=== PATIENT | female | born 1980 | race Caucasian/White ===

== ENCOUNTER 2019-11-20 15:50 | Outpatient (CLI) | payer OTHER | END 2019-11-20 15:51 | disposition home or self-care (01) | LOC: DTY/OP 15:50 | PROVIDERS: ATTEND Surgery | DX: E66.01 Morbid (severe) obesity due to excess calories (principal) | CPT/HCPCS: 97802 ==

== ENCOUNTER 2019-12-18 15:45 | Outpatient (CLI) | payer OTHER | END 2019-12-18 15:46 | disposition home or self-care (01) | LOC: DTY/OP 15:45 | PROVIDERS: ATTEND Surgery | DX: E66.01 Morbid (severe) obesity due to excess calories (principal) | CPT/HCPCS: 97802 ==

== ENCOUNTER 2019-12-24 06:33 | Outpatient (CLI) | payer OTHER ==
[2019-12-24 17:20] LABS: #Basophils 0.1 thou/uL (0.0-0.2); #Eosinphils 0.3 thou/uL (0.0-0.7); #Lymphocytes 2.1 thou/uL (1.20-3.40); #Monocytes 0.4 thou/uL (0.11-0.59); #Neutrophils 4.2 thou/uL (1.40-6.50); %Basophils 0.7 % (0.0-1.0); %Eosinophils 4.5 % (0.0-10.0); %Lymphocytes 29.5 % (21.0-51.0); %Monocytes 5.1 % (0.0-10.0); %Neutrophils 60.1 % (42.0-75.0); Hemoglobin 13.6 g/dL (12.0-16.0); Mean Corpuscular HGB CONC 34.5 g/dL (32.0-36.0); Mean Corpuscular Hemoglobin 32.7 pg (27.0-31.0); Mean Corpuscular Volume 94.8 fL (78.0-98.0); Mean Platelet Volume 8.1 fL (7.4-10.4); Platelet Count 188 thou/uL (130-400); RBC Distribution Width 11.4 % (11.5-14.5); Red Blood Cell (RBC) Count 4.17 mill/uL (4.20-5.40); White Blood Cell (WBC) Count 7.1 thou/uL (4.8-10.8)
[2019-12-24 17:43] LABS: Anion Gap 11 mmol/L (10-20); BUN (Urea Nitrogen) 15 mg/dL (7.0-18.7); Calc. Creatinine Clearance 0 mL/min (70-130); Calcium 9.4 mg/dL (7.8-10.44); Carbon Dioxide 24 mmol/L (22-29); Chloride 106 mmol/L (98-107); Estimated GFR-MDRD Greater than 90; Glucose 92 mg/dL (70-105); Potassium 3.8 mmol/L (3.5-5.1); Sodium 137 mmol/L (136-145)
== END 2019-12-24 06:34 | disposition home or self-care (01) ==
LOC: LABBT 06:33
PROVIDERS: ATTEND Surgery
DX: Z01.812 Encounter for preprocedural laboratory examination (principal); C50.911 Malignant neoplasm of unspecified site of right female breast
CPT/HCPCS: 80048; 85025

== ENCOUNTER 2019-12-27 07:02 | Day surgery (SDC) | payer OTHER ==
[2019-12-24 16:25] VITALS: BMI 55.7
--- NOTE | 2019-12-27 08:47 | MMO ---
RIGHT BREAST MAMMOGRAPHIC GUIDED NEEDLE AND WIRE LOCALIZATION: INDICATION: Right breast malignancy. COMPARISON: Outside mammographic evaluation dated 11/26/2019. TECHNIQUE: Informed consent was obtained. Preprocedure mammographic image was provided for manufacturing sr engineer purposes. In a CC compression and a cranial approach, a 12 cm [place] needle was guided through the level of the lesion. Needle tip position was confirmed on 90 degree positioning. The wire was deployed. The needle tip is seen 6.2 mm from the margin of the lesion. The needle and wire were then fixated to the patient's skin. The patient tolerated the procedure without difficulty. IMPRESSION: BI-RADS Category 6-known malignancy. Status post mammographically guided needle wire localization. Transcribed Date/Time: 12/27/2019 9:16 AM
--- NOTE | 2019-12-27 09:06 | NM ---
Right breast lymphoscintigraphy: 12/27/2019 COMPARISON: None HISTORY: Right breast cancer FINDINGS: Under sterile technique, 0.39 mCi technetium 99m labeled sulfur colloid injected subcutaneo usly in divided doses along the superior, medial, inferior, and lateral margins of the areola. Frontal and lateral imaging demonstrates radiotracer activity in the region of the 4 injection sites as well as in the region of axillary lymph nodes. IMPRESSION: Lymphoscintigraphy of the right breast as above.
[2019-12-27] MEDS ORDERED: Fentanyl 100 MCG/2 ML VIAL ONE ×4 (09:51→13:13)
[2019-12-27] MEDS ORDERED: Lidocaine 2% PF 5 ML VIAL ONE (10:02)
[2019-12-27] MEDS ORDERED: Bupivacaine 0.25% HCL 30 ML VIAL ONE (10:02)
[2019-12-27] MEDS ORDERED: EPINEPHrine 1 MG/ML AMP ONE (10:02)
[2019-12-27] MEDS ORDERED: Scopolamine 1.5 mg/72 hour Patch ONE (10:05)
[2019-12-27] MEDS ORDERED: Methylene Blue 50 MG/10 ML AMPUL ONE (10:07)
[2019-12-27] MEDS ORDERED: Midazolam HCl 2 mg/2 ml Vial ONE (10:22)
[2019-12-27] MEDS ORDERED: Rocuronium Bromide 10 MG/ML (10ML VIAL) ONE (10:42)
[2019-12-27] MEDS ORDERED: PROPOFOL 200 MG/20 ML VIAL ONE (10:42)
[2019-12-27] MEDS ORDERED: EPHEDRINE 25 MG/5 ML SYRINGE ONE (10:42)
[2019-12-27] MEDS ORDERED: Lidocaine 1% PF 5 ML VIAL ONE (10:42)
[2019-12-27] MEDS ORDERED: Dexamethasone 20 MG/5 ML VIAL ONE (10:42)
[2019-12-27] MEDS ORDERED: Ondansetron PF 4 MG/2 ML Vial ONE (10:42)
[2019-12-27] MEDS ORDERED: Glycopyrrolate 0.2 MG/ML 5 ML SYRINGE ONE (10:42)
[2019-12-27] MEDS ORDERED: SUGAMMADEX SODIUM 500 MG/5 ML VIAL ONE (12:09)
--- NOTE | 2019-12-27 12:14 | MMO ---
RIGHT BREAST SPECIMEN MAMMOGRAM: Date: 12/27/2019 INDICATION: Right breast cancer. FINDINGS: Submitted specimen demonstrates a spiculated mass with associated biopsy clip. IMPRESSION: BI-RADS Category 6 - Known malignancy. The specimen does contain the spiculated mass with biopsy clip . Dr. Feldman was contacted in the OR at 1206 hours on 12/27/2019. CODE CR. POS: OFF
[2019-12-27] MEDS ORDERED: HYDROcodone/Acetaminophen 5/325 mg Tablet ONE (13:58)
[2019-12-27] MEDS ORDERED: Sodium Chloride 0.9% 0 ML ONE (15:44)
--- NOTE | 2019-12-28 09:02 | OP ---
DATE OF PROCEDURE: 12/27/2019 PREOPERATIVE DIAGNOSIS: Right breast cancer, clinical stage T2 N0 MX. POSTOPERATIVE DIAGNOSIS: Right breast cancer, clinical stage T2 N0 MX. PROCEDURES PERFORMED: 1. Right partial mastectomy after needle localization. 2. Right deep axillary node biopsy using sentinel node protocol. ANESTHESIA: General. ESTIMATED BLOOD LOSS: Minimal. COMPLICATIONS: None. SPECIMENS: 1. Right breast lumpectomy specimen, marked with 2 short superior 1 long lateral, and sent to Path for final diagnosis. 2. Additional margins superior, inferior, medial, lateral, anterior and posterior were all sent with stitch on new margin as final margins. 3. [place] lymph nodes. DESCRIPTION OF PROCEDURE: The patient had undergone preoperative lymphoscintigraphy which revealed uptake in the right axilla. She also had placement of needle localization wire into the area of previous biopsy in the right breast. She was taken to the operating room and laid supine on the operating table. After general anesthetic was obtained, bilateral breasts, neck, chest, arms, and sides were all prepped and draped in a sterile fashion. Incision was made along just inferior to the hairline of the right axilla. Dissection was performed through clavipectoral fascia. 5 mL of methylene blue dye had been infiltrated under the right nipple prior to the procedure and massaged for 10 minutes. A blue node was found and had increased uptake. This area was removed with a few other lymph nodes with it. There were a few lymph nodes around it with elevated, but slightly less uptake. These were removed as well. The background count then dropped to near 0. These were sent to Pathology as sentinel lymph nodes. This wound was irrigated and closed using 3-0 Vicryl, 4-0 Monocryl, and Dermabond. Next, an incision was made along the areolar edge superior and laterally. Flaps were raised superiorly, medially, inferolaterally, and posteriorly around the needle localization wire. The specimen was marked with 2 short superior 1 long lateral, sent to Path for specimen x-ray, which revealed the clip and mass to be in the specimen. This was marked and sent to Path for final diagnosis. Additional margins were taken superior, inferior, medially, laterally with sutures placed on new margin. The wound was irrigated. Local anesthetic was applied. The wound was closed using 3-0 Vicryl, 4-0 Monocryl, and Dermabond. The patient was sent to Recovery in stable condition. All instrument counts, needle counts, and lap counts were correct. Job ID: [id number]
== END 2019-12-27 16:35 | disposition home or self-care (01) ==
LOC: SDC 07:02
PROVIDERS: ATTEND Surgery
PROC: 07B53ZX Excision of Right Axillary Lymphatic, Percutaneous Approach, Diagnostic (ICD-10-PCS; principal; 2019-12-27)
PROC: 0HBT0ZZ Excision of Right Breast, Open Approach (ICD-10-PCS; principal; 2019-12-27)
DX: C50.911 Malignant neoplasm of unspecified site of right female breast (principal); C77.3 Secondary and unspecified malignant neoplasm of axilla and upper limb lymph nodes; F41.9 Anxiety disorder, unspecified; Z79.899 Other long term (current) drug therapy; Z88.2 Allergy status to sulfonamides; Z91.048 Other nonmedicinal substance allergy status
CPT/HCPCS: 19281; 76098; 78195; 88307; 88342; A9541; J0171; J0690; J1100; J2001; J2250; J2405; J2704; J3010; Q9968; S0020

== ENCOUNTER 2020-01-10 07:29 | Outpatient (CLI) | payer OTHER ==
--- NOTE | 2020-01-10 09:19 | PET ---
EXAM: PET CT skull to mid thigh COMPARISON: Mammogram 11/26/2019 HISTORY: Right breast cancer in the upper outer breast TECHNIQUE: A PET/CT was performed from the skull to the mid thigh after administration of 12.6 millic uries of F-18 FDG. Evaluation was performed on a [employer] workstation. FINDINGS: NECK: No areas of hypermetabolic activity CHEST: Nonspecific hypermetabolic activity is seen within both nipples. Hypermetabolic activity is al so seen in the right axilla just below the postoperative change in the axilla with max SUV value of 3.1. There is a large seroma in the outer aspect of the right breast and a small seroma in the right axilla. ABDOMEN/PELVIS: No areas of hypermetabolic activity SKELETON: Diffuse nonfocal hypermetabolic activity in the bones may be secondary to marrow activation . No focal areas of hypermetabolic activity CT images used for attenuation correction show the patient to be status post cholecystectomy.. IMPRESSION: 1. There is hypermetabolic activity in the right axilla which could represent a metastatic right axil cindy lymph node or this could represent inflammatory postsurgical change in a right axillary lymph node. 2. Nonspecific bilateral nipple hypermetabolic activity.
== END 2020-01-10 07:30 | disposition home or self-care (01) ==
LOC: PET 07:29
PROVIDERS: ATTEND Internal Medicine Hematology & Oncology
DX: C50.811 Malignant neoplasm of overlapping sites of right female breast (principal)
CPT/HCPCS: 78815; A9552

== ENCOUNTER 2020-01-10 09:25 | Day surgery (SDC) | payer OTHER ==
[2020-01-09 08:50] VITALS: BMI 56.7
[2020-01-10] MEDS ORDERED: PROPOFOL 200 MG/20 ML VIAL ONE (10:06)
[2020-01-10] MEDS ORDERED: Scopolamine 1.5 mg/72 hour Patch ONE (10:09)
[2020-01-10] MEDS ORDERED: Ondansetron PF 4 MG/2 ML Vial ONE (10:09)
[2020-01-10] MEDS ORDERED: Bupivacaine 0.25% HCL 30 ML VIAL ONE (10:29)
[2020-01-10] MEDS ORDERED: Lidocaine 1% w/Epinephrine 1:100K 20 ML VIAL ONE (10:29)
[2020-01-10] MEDS ORDERED: Propofol 500 MG/50 ML VIAL ONE (10:34)
[2020-01-10] MEDS ORDERED: Fentanyl 100 MCG/2 ML VIAL ONE (10:34)
[2020-01-10] MEDS ORDERED: PROPOFOL 0 ML ONE (10:34)
[2020-01-10] MEDS ORDERED: Midazolam HCl 2 mg/2 ml Vial ONE (10:42)
[2020-01-10] MEDS ORDERED: PROPOFOL 20 ML ONE (11:28)
--- NOTE | 2020-01-10 12:24 | RAD ---
EXAM: Single view of the chest HISTORY: Mediport placement COMPARISON: None FINDINGS: Single view of the chest shows a normal sized cardiomediastinal silhouette. A left IJ Medi port is seen with its tip likely within the azygos vein. No pneumothorax is seen. There is no evidence of consolidation, mass, or pleural effusion. The bones are unremarkable. IMPRESSION: No evidence of acute cardiopulmonary disease
[2020-01-10] MEDS ORDERED: HYDROcodone/Acetaminophen 5/325 mg Tablet ONE (12:31)
--- NOTE | 2020-01-11 12:55 | OP ---
DATE OF PROCEDURE: 01/10/2020 PREOPERATIVE DIAGNOSIS: Right breast cancer. POSTOPERATIVE DIAGNOSIS: Right breast cancer. PROCEDURE PERFORMED: Tunneled central line with subcutaneous port (MediPort, left internal jugular CT injectable). ANESTHESIA: General. ESTIMATED BLOOD LOSS: Minimal. COMPLICATIONS: None. SPECIMENS: None. FINDINGS: Tip of the catheter is in the superior vena cava. DESCRIPTION OF PROCEDURE: The patient was taken to the operating room and laid supine on the operating room table. After general anesthetic was obtained, bilateral neck and chest were prepped and draped in a sterile fashion. Local anesthetic infiltrated over the left internal jugular vein. Internal jugular vein was cannulated using a 22-gauge finder needle followed by a Seldinger needle. Wire was passed into the superior vena cava under fluoro guidance. Due to the patient's body habitus, the turn into the superior vena cava was very difficult. A small kacey was made at the wire entrance site. A separate 3 cm incision was made in the left upper chest, tubing for the MediPort tunneled from the inferior to superior incision. An introducer sheath was placed over the wire into the superior vena cava under some difficulty. The wire and dilator removed. The end of the catheter sewed into the sheath as the sheath was peeled away. The tip of the catheter was near the atriocaval junction and appears to make a turn possibly into the azygos vein. It was withdrawn and passed back down several times without successfully going straight into the right atrium, so it was left in place because it flushes and marti blood without difficulty. The tubing was cut to fit the MediPort at the lower incision, connected to the MediPort. The MediPort was sewn into the chest wall in the subcutaneous pocket using Prolene. The wound was irrigated and closed using 3-0 Vicryl, 4-0 Monocryl, and Dermabond. The patient was sent to Recovery in stable condition. All instrument counts, needle counts, and lap counts were correct. Job ID: [id number]
== END 2020-01-10 13:20 | disposition home or self-care (01) ==
LOC: SDC 09:25
PROVIDERS: ATTEND Surgery
PROC: 02HV33Z Insertion of Infusion Device into Superior Vena Cava, Percutaneous Approach (ICD-10-PCS; principal; 2020-01-10)
DX: C50.911 Malignant neoplasm of unspecified site of right female breast (principal); Z88.2 Allergy status to sulfonamides; Z91.048 Other nonmedicinal substance allergy status
CPT/HCPCS: 71045; C1788; J0690; J1642; J2250; J2405; J2704; J3010; S0020

== ENCOUNTER 2020-01-22 04:30 | Outpatient (CLI) | payer OTHER | END 2020-01-22 04:31 | disposition home or self-care (01) | LOC: DTY/OP 04:30 | PROVIDERS: ATTEND Surgery | DX: E66.01 Morbid (severe) obesity due to excess calories (principal) | CPT/HCPCS: 97802 ==

== ENCOUNTER 2020-01-23 12:35 | Outpatient (CLI) | payer OTHER | END 2020-01-23 12:36 | disposition home or self-care (01) | LOC: ULT 12:35 | PROVIDERS: ATTEND Internal Medicine Hematology & Oncology | DX: Z51.11 Encounter for antineoplastic chemotherapy (principal); C50.811 Malignant neoplasm of overlapping sites of right female breast; Z79.899 Other long term (current) drug therapy | CPT/HCPCS: 93306 ==

== ENCOUNTER 2020-02-19 16:45 | Outpatient (CLI) | payer OTHER | END 2020-02-19 16:46 | disposition home or self-care (01) | LOC: DTY/OP 16:45 | PROVIDERS: ATTEND Surgery | DX: E66.01 Morbid (severe) obesity due to excess calories (principal) | CPT/HCPCS: 97802 ==

== ENCOUNTER 2020-08-22 06:47 | Outpatient (CLI) | payer OTHER ==
[2020-08-22 12:46] LABS: #Basophils 0.1 10x3/uL (0.0-0.2); #Eosinphils 0.4 10x3/uL (0.0-0.5); #Monocytes 0.4 10x3/uL (0.0-1.1); #Neutrophils 5.2 10x3/uL (1.5-8.4); %Basophils 0.7 % (0.0-2.0); %Eosinophils 5.4 % (0.0-6.0); %Lymphocytes 15.8 % (18.0-47.0); %Monocytes 5.8 % (0.0-10.0); Hemoglobin 12.8 g/dL (12.0-16.0); Mean Corpuscular HGB CONC 34.2 G/DL (32.0-36.0); Mean Corpuscular Hemoglobin 31.1 PG (27.0-33.0); Mean Corpuscular Volume 90.8 fl (80.0-100.0); Platelet Count 188 10x3/uL (130-400); RBC Distribution Width 11.9 % (11.5-14.5); Red Blood Cell (RBC) Count 4.12 10x6/uL (3.90-5.20); White Blood Cell (WBC) Count 7.3 10x3/uL (4.5-11.0)
[2020-08-22 12:48] LABS: BHCG - Serum Negative (NEGATIVE); Pregs Control Background? CLEAR/WHITE (CLR/WHITE); Pregs Control Bar Appear? YES (CONTROL BAR)
--- NOTE | 2020-08-22 14:01 | RAD ---
PA AND LATERAL VIEWS OF THE CHEST: 08/22/20 HISTORY: Preoperative evaluation. Right breast cancer. COMPARISON: 01/10/20. FINDINGS: Left sided Port-A-Cath remains in place. The heart size is normal. The lungs are expanded without foc al areas of consolidation, pneumothoraces, or pleural effusions. No acute osseous abnormalities are s een. IMPRESSION: No radiographic evidence of acute cardiopulmonary process. POS: AH
[2020-08-22 14:43] LABS: ALT (SGPT) 25 U/L (8-55); AST (SGOT) 28 U/L (5-34); Albumin 4.3 g/dL (3.5-5.0); Alkaline Phosphatase 90 U/L (40-110); Anion Gap 23 mmol/L (10-20); BUN (Urea Nitrogen) 20 mg/dL (7.0-18.7); Bilirubin, Total 0.5 mg/dL (0.2-1.2); Calc. Creatinine Clearance 0 mL/min (70-130); Calcium 9.7 mg/dL (7.8-10.44); Carbon Dioxide 18 mmol/L (22-29); Chloride 104 mmol/L (98-107); Estimated GFR-MDRD 89; Globulin 2.5 g/dL (2.4-3.5); Glucose 101 mg/dL (70-105); Potassium 4.5 mmol/L (3.5-5.1); Protein, Total 6.8 g/dL (6.0-8.3); Sodium 140 mmol/L (136-145)
[2020-08-22 16:45] LABS: Hemoglobin A1c 4.5 % (4.0-6.0)
[2020-08-25 12:37] LABS: SARS-CoV-2 by NAA Not Detected (Not Detected)
--- NOTE | 2020-08-27 19:24 | EKG ---
Test Reason : Blood Pressure : / mmHG Vent. Rate : 089 BPM Atrial Rate : 089 BPM P-R Int : 152 ms QRS Dur : 092 ms QT Int : 384 ms P-R-T Axes : 053 047 034 degrees QTc Int : 467 ms Normal sinus rhythm Normal ECG No previous ECGs available Confirmed by STANLEY GRAY, DR. Salazar ([id number]) on 08/27/2020 7:24:01 PM Referred By: MORGAN Confirmed By:DR. Marie ANGEL MD
== END 2020-08-22 06:48 | disposition home or self-care (01) ==
LOC: LABBT 06:47
PROVIDERS: ATTEND Surgery
DX: Z01.818 Encounter for other preprocedural examination (principal); E66.01 Morbid (severe) obesity due to excess calories; Z20.828 Contact with and (suspected) exposure to other viral communicable diseases
CPT/HCPCS: 71046; 80053; 83036; 84703; 85025; 87635; 93005; 93010; U0003

== ENCOUNTER 2020-08-22 11:30 | Inpatient (IN) | payer OTHER ==
[2020-08-27] MEDS ORDERED: Lidocaine 1% PF 5 ML VIAL ONE (08:53)
[2020-08-27] MEDS ORDERED: PROPOFOL 200 MG/20 ML VIAL ONE (08:53)
[2020-08-27] MEDS ORDERED: Rocuronium Bromide 10 MG/ML (10ML VIAL) ONE (08:53)
[2020-08-27] MEDS ORDERED: Heparin 5,000 UNITS/ML VIAL ONE (10:03)
[2020-08-27] MEDS ORDERED: Fentanyl 100 MCG/2 ML VIAL ONE ×3 (10:25→13:17)
[2020-08-27] MEDS ORDERED: SUGAMMADEX SODIUM 200 MG/2 ML VIAL ONE (10:25)
[2020-08-27] MEDS ORDERED: Lidocaine 1% w/Epinephrine 1:100K 20 ML VIAL ONE (11:28)
[2020-08-27] MEDS ORDERED: Bupivacaine 0.25% HCL 30 ML VIAL ONE (11:28)
[2020-08-27] MEDS ORDERED: Ondansetron HCl/PF 4 MG/2 ML Vial IVP PRN (12:40)
[2020-08-27] MEDS ORDERED: Morphine Sulfate 2 MG/ML SYRINGE SLOW IVP PRN (12:40)
[2020-08-27] MEDS ORDERED: HYDROmorphone 2 MG/ML VIAL SLOW IVP PRN (12:40)
[2020-08-27] MEDS ORDERED: Promethazine HCl 25 MG/ML VIAL IM PRN ×3 (12:40→14:09)
[2020-08-27] MEDS ORDERED: Promethazine HCl 25 MG/ML VIAL SLOW IVP PRN (12:40)
[2020-08-27] MEDS ORDERED: Ketorolac Tromethamine 30 MG/ML VIAL IVP PRN ×2 (12:40→12:54)
[2020-08-27] MEDS ORDERED: PACU-Morphine 4MG/ML VIAL SLOW IVP PRN (12:40)
[2020-08-27] MEDS ORDERED: Meperidine HCl/PF 25 MG/ML VIAL SLOW IVP PRN (12:40)
[2020-08-27] MEDS ORDERED: Naloxone HCl 0.4 mg/ml Vial IV PRN (12:54)
[2020-08-27] MEDS ORDERED: Ondansetron PF 4 MG/2 ML Vial IVP PRN ×2 (12:54→14:09)
[2020-08-27] MEDS ORDERED: HYDROmorphone 0.5 MG/0.5 ML SYRINGE ONE (12:54)
[2020-08-27] MEDS ORDERED: fentaNYL Citrate/PF 2,000 MCG in Sodium Chloride 0.9% 60 ML IV PRN (12:54)
[2020-08-27] MEDS ORDERED: Zolpidem Tartrate 5 MG TAB PO PRN (12:54)
[2020-08-27] MEDS ORDERED: diphenhydrAMINE 50 MG/ML VIAL IVP PRN ×2 (12:54→14:09)
[2020-08-27] MEDS ORDERED: diphenhydrAMINE 25 MG CAP PO PRN (12:54)
[2020-08-27] MEDS ORDERED: diphenhydrAMINE 50 MG/ML VIAL IM PRN (12:54)
[2020-08-27] MEDS ORDERED: Communication Order-Pharmacy FS SCH (13:00)
[2020-08-27] MEDS ORDERED: Promethazine HCl 25 MG/ML VIAL ONE (13:05)
[2020-08-27] MEDS ORDERED: Dextrose 50% Abboject 50 ML SYRINGE SLOW IVP PRN (14:09)
[2020-08-27] MEDS ORDERED: hydrALAZINE 20 MG/ML VIAL SLOW IVP PRN (14:09)
[2020-08-27] MEDS ORDERED: Dextrose 5% in Water 1,000 ML IV PRN (14:09)
[2020-08-27] MEDS ORDERED: Hydrocodone-Acetamin 15 ML UDCUP PO PRN (14:09)
[2020-08-27] MEDS ORDERED: Goserelin Acetate 10.8 MG KIT SC SCH (14:09)
[2020-08-27] MEDS: D5 1/2 NS w/20 mEq KCL 1,000 ML IV SCH ×2 (15:14→23:09)
[2020-08-27 16:07] VITALS: BMI 56.7
--- NOTE | 2020-08-27 17:25 | OP ---
DATE OF PROCEDURE: 08/27/2020 PREOPERATIVE DIAGNOSIS: Morbid obesity with a body mass index of 56. POSTOPERATIVE DIAGNOSES: 1. Morbid obesity with a body mass index of 56. 2. Paraesophageal hiatal hernia. PROCEDURES PERFORMED: 1. Laparoscopic sleeve gastrectomy with [place] staple line reinforcement and 38-[place] Island[place] bougie. 2. Laparoscopic paraesophageal hiatal hernia without fundoplication or mesh. 3. Esophagogastroduodenoscopy. ANESTHESIA: General. ESTIMATED BLOOD LOSS: Minimal. COMPLICATIONS: None. FINDINGS: Hiatal hernia. DESCRIPTION OF PROCEDURE: The patient was taken to the operating room and laid supine on the operating room table. After general anesthetic was obtained, the arms and legs were double strapped to bariatric table. The abdomen was prepped and draped in a sterile fashion. Left subcostal 5 mm Optiview trocar was placed in usual fashion, and high-flow pneumoperitoneum was obtained. Left and right abdominal 12 mm ports as well as a right subcostal 5 mm port were placed under direct visualization. A 5 mm incision was made at the xiphoid, and the Cliff was used to raise the liver off the GE junction. Short gastrics were taken down from midbody of the stomach to left ashli of diaphragm. Left ashli, posterior fundus, and angle of His were completely dissected. Short gastrics were taken down to a distance of 6 cm proximal to the pylorus. A hiatal hernia was found. A circumferential dissection of the esophagus was performed, bringing the fundus and GE junction back into the abdominal cavity. A 38 bougie was brought in and its tip left in the antrum of the stomach. Multiple loads of [place] stapling device were used to form the sleeve with Ethicon staple line reinforcements. The first was fired up at the distance of 6 cm proximal to the pylorus, angled up towards the incisura. Multiple loads were then fired up along the bougie. Stomach was transected at the angle of His. Stomach was removed from the left abdominal incision. This fascial defect was closed using GraNee needle and 0 Vicryl tie. An Ethibond suture and the Ti-KNOT were used to close the fascial defect posteriorly to close the diaphragmatic defect. The bougie was removed. EGD scope was passed through esophagus and stomach to the level of duodenum without obstruction. There was no stricture at the incisura. There was no evidence of stenosis at the diaphragmatic hiatus or at the GE junction. There was no leakage through the staple line. EGD scope was used to decompress the stomach, it was pulled and removed. All port sites were infiltrated using local anesthetic. Cliff retractor was removed under direct visualization without bleeding. Pneumoperitoneum was let down. All incisions were closed using 4-0 Monocryl and Dermabond. The patient was sent to Recovery in stable condition. All instrument counts, needle counts, and lap counts were correct. Job ID: [id number]
[2020-08-27] MEDS ORDERED: Enoxaparin Sodium 40 MG/0.4 ML SYRINGE SC SCH (21:00)
[2020-08-27] MEDS ORDERED: Escitalopram Oxalate 20 mg Tablet PO SCH (21:00)
[2020-08-27] MEDS: Ketorolac Tromethamine 30 MG/ML VIAL IVP PRN (21:02)
[2020-08-28] MEDS: Ketorolac Tromethamine 30 MG/ML VIAL IVP PRN (05:15)
[2020-08-28 05:21] LABS: #Monocytes 0.5 thou/uL (0.11-0.59); #Neutrophils 3.9 thou/uL (1.40-6.50); %Basophils 0.1 % (0.0-1.0); %Eosinophils 0.2 % (0.0-10.0); %Lymphocytes 17.8 % (21.0-51.0); %Monocytes 8.8 % (0.0-10.0); %Neutrophils 73.1 % (42.0-75.0); Hemoglobin 12.4 g/dL (12.0-16.0); Mean Corpuscular HGB CONC 35.3 g/dL (32.0-36.0); Mean Corpuscular Hemoglobin 32.4 pg (27.0-31.0); Mean Corpuscular Volume 91.9 fL (78.0-98.0); Mean Platelet Volume 7.1 fL (7.4-10.4); Platelet Count 176 thou/uL (130-400); RBC Distribution Width 11.4 % (11.5-14.5); Red Blood Cell (RBC) Count 3.84 mill/uL (4.20-5.40); White Blood Cell (WBC) Count 5.4 thou/uL (4.8-10.8)
[2020-08-28 05:38] LABS: Anion Gap 12 mmol/L (10-20); BUN (Urea Nitrogen) 7 mg/dL (7.0-18.7); Calc. Creatinine Clearance 230 mL/min (70-130); Calcium 9.4 mg/dL (7.8-10.44); Carbon Dioxide 27 mmol/L (22-29); Chloride 106 mmol/L (98-107); Estimated GFR-MDRD 89; Glucose 115 mg/dL (70-105); Potassium 3.8 mmol/L (3.5-5.1); Sodium 141 mmol/L (136-145)
--- NOTE | 2020-08-28 06:55 | PDOC.GSPN ---
Surgery Progress Note: Subj - Subjective Patient reports: positive flatus, pain well controlled (left rib pain alleviated with toradol), tolerating liquids well Surgery Progress Note: Obj - Vital signs Vital signs: Vital Signs - Most Recent Temp Pulse Resp BP Pulse Ox 98.5 F 95 18 133/84 95 08/28/20 03:13 08/28/20 03:13 08/28/20 03:13 08/28/20 03:13 08/28/20 03:13 - Physical Exam General: no distress, well nourished, obese Cardiovascular: regular rate and rhythm, no murmur Respiratory: clear to auscultation, normal respiratory effort Abdomen: soft, non tender, nondistended Wound: healing well Surgery Progress Note: Results - Labs Result Diagrams: 08/28/20 04:50 08/28/20 04:50 Lab results: Laboratory Results - last 12 hr 08/28/20 08/28/20 04:50 04:50 WBC 5.4 RBC 3.84 L Hgb 12.4 Hct 35.3 L MCV 91.9 MCH 32.4 H MCHC 35.3 RDW 11.4 L Plt Count 176 MPV 7.1 L Neutrophils % 73.1 Lymphocytes % 17.8 L Monocytes % 8.8 Eosinophils % 0.2 Basophils % 0.1 Neutrophils # 3.9 Lymphocytes # 1.0 L Monocytes # 0.5 Eosinophils # 0.0 Basophils # 0.0 Sodium 141 Potassium 3.8 Chloride 106 Carbon Dioxide 27 Anion Gap 12 BUN 7 Creatinine 0.73 Estimated GFR (MDRD) 89 Glucose 115 H Calcium 9.4 Surgery Progress Note: A/P - Problem (1) Morbid obesity Current Visit: Yes Code(s): E66.01 - MORBID (SEVERE) OBESITY DUE TO EXCESS CALORIES Status: Acute - Plan Plan: Ms. Kathia Bell is a 40 yo female 1 day post gastric sleeve. Pt is doing well overall and in no acute distress. Pt complained of left rib pain yesterday, and toradol was prescribed. Pt states that toradol is helping. Pt feels a little nauseous. Pt endorses ambulating, incentive spirometer, and tolerating apple juice and jello. Pt denies fever, chills, vomiting, and SOB. Plan: Continue monitoring vitals and labs. Continue incentive spirometer. Advance meals if tolerating. Potential discharge today.
[2020-08-28] MEDS ORDERED: Hydrocodone-Acetamin 15 ML UDCUP PO PRN (07:35)
[2020-08-28] MEDS ORDERED: Pantoprazole 40 MG VIAL IVP SCH (09:00)
[2020-08-28] MEDS: D5 1/2 NS w/20 mEq KCL 1,000 ML IV SCH (09:00)
[2020-08-28 11:30] VITALS: BP 135/82; TEMP 98.5
--- NOTE | 2020-08-29 01:33 | DIS ---
DATE OF ADMISSION: 08/27/2020 DATE OF DISCHARGE: 08/28/2020 ADMITTING DIAGNOSIS: Morbid obesity. DISCHARGE DIAGNOSIS: Morbid obesity. PROCEDURE PERFORMED: Laparoscopic sleeve gastrectomy by Dr. Feldman, without complication. CONDITION ON DISCHARGE: Improved. STAFF: Bran Feldman MD HOSPITAL COURSE: On postop day 1, the patient is doing well. Her pain is controlled. She is ambulatory. She is tolerating liquids. She is discharged home. She will follow up with me in 2 weeks. Job ID: [id number]
== END 2020-08-28 11:38 | disposition home or self-care (01) | DRG 621 ==
LOC: SURG A 08-27 09:47
PROVIDERS: ADMIT Surgery; ATTEND Surgery
PROC: 0DB64Z3 Excision of Stomach, Percutaneous Endoscopic Approach, Vertical (ICD-10-PCS; principal; 2020-08-27)
PROC: 0BQT4ZZ Repair Diaphragm, Percutaneous Endoscopic Approach (ICD-10-PCS; 2020-08-27)
PROC: 0DJ08ZZ Inspection of Upper Intestinal Tract, Via Natural or Artificial Opening Endoscopic (ICD-10-PCS; 2020-08-27)
DX: E66.01 Morbid (severe) obesity due to excess calories (principal); K44.9 Diaphragmatic hernia without obstruction or gangrene; Z85.3 Personal history of malignant neoplasm of breast; Z68.43 Body mass index [BMI] 50.0-59.9, adult; Z90.49 Acquired absence of other specified parts of digestive tract; R07.81 Pleurodynia; R11.0 Nausea
CPT/HCPCS: 36415; 80048; 85025; 88307; 88312; C9113; J0690; J1170; J1644; J1650; J1885; J2550; J2704; J3010; J3480; S0020

== ENCOUNTER 2020-09-25 06:56 | Outpatient (CLI) | payer OTHER ==
[2020-09-25 19:31] LABS: Hemoglobin 12.8 g/dL (12.0-16.0); Mean Corpuscular HGB CONC 33.8 G/DL (32.0-36.0); Mean Corpuscular Hemoglobin 31.1 PG (27.0-33.0); Mean Corpuscular Volume 92.2 fl (80.0-100.0); Mean Platelet Volume 10.7 fl (7.4-10.4); Platelet Count 170 10x3/uL (130-400); Red Blood Cell (RBC) Count 4.11 10x6/uL (3.90-5.20); White Blood Cell (WBC) Count 4.8 10x3/uL (4.5-11.0)
[2020-09-25 19:52] LABS: BHCG - Serum Negative (NEGATIVE)
[2020-09-25 19:53] LABS: Pregs Control Background? CLEAR/WHITE (CLR/WHITE); Pregs Control Bar Appear? YES (CONTROL BAR)
[2020-09-26 03:05] LABS: SARS-CoV-2 MS2 Positive; SARS-CoV-2 N Gene Negative; SARS-CoV-2 S Gene Negative; SARS-CoV-2 by NAA Not Detected (NotDetected); SARS-CoV-2 orf1ab Negative
== END 2020-09-25 06:57 | disposition home or self-care (01) ==
LOC: LABBT 06:56
PROVIDERS: ATTEND Obstetrics & Gynecology
DX: Z01.812 Encounter for preprocedural laboratory examination (principal); Z85.3 Personal history of malignant neoplasm of breast; Z20.828 Contact with and (suspected) exposure to other viral communicable diseases
CPT/HCPCS: 84703; 85027; 87635; U0003

== ENCOUNTER 2020-09-30 09:25 | Day surgery (SDC) | payer OTHER ==
[2020-09-26 14:22] VITALS: BMI 51.9
--- NOTE | 2020-09-29 16:08 | HP ---
DATE OF PLANNED SURGERY: 09/30/2020. HISTORY OF PRESENT ILLNESS: Ms. 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 The tumor was rnvojeyx-nzgomzja-kihgqits 100% and sjshtleoiawl-cmnapyla-kugrrkzl 90%, HER2 negative. She had regional metastatic disease with 2/3 sentinel lymph nodes being involved. Lumpectomy was carried out for this on 12/27/2019, and her Oncotype was 19. She is currently on Zoladex for suppression of her ovarian function since she completed her chemotherapy adjuvant coverage with Adriamycin, Cytoxan back in March of 2020. She also received Taxol regimen. She has also undergone radiation therapy for local control. PAST MEDICAL HISTORY: Significant mainly for her morbid obesity, which she just underwent a gastric sleeve back on August [address] Feldman, and is subsequently doing well with losing 25 pounds. PAST SURGICAL HISTORY: Significant for the prior sections x3. She had obstruction in 1990 repaired, appendectomy in 1994, right ankle surgeries in 2009, 2010, and 2014, and cholecystectomy in 2010. Her genetic BRCA screening was negative. FAMILY HISTORY: Basically maternal grandmother with lung cancer. SOCIAL HISTORY: She is . She has 3 children. She lives with her spouse. She is a nonsmoker. No excessive alcohol use or drug use. 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 COLLECTION CORRESPONDENT HISTORY: She had menarche at age 11. Menopause occurred with the use of the chemotherapy. She denies any prior estrogen usage. ALLERGIES: SHE HAS ALLERGIES TO BACTRIM AND ALSO ADHESIVE TAPE ALONG WITH THE DERMABOND. CURRENT MEDICATIONS: 1. Anastrozole 1 mg daily. 2. Pantoprazole 40 mg tablet daily. 3. Escitalopram 20 mg tablet daily. 4. Symbicort 80/4.5 mcg aerosol inhalation 2 puffs b.i.d. 5. Ventolin MDI 2 puffs q.6 hours p.r.n. as needed. PHYSICAL EXAMINATION: GENERAL: The patient is a pleasant, obese white female, in no acute distress. VITAL SIGNS: Her height is 5 feet 2 inches, weight 286 with a BMI of 52.3. Blood pressure 110/70, pulse is 92, respirations 18, and O2 sats 98%. HEENT: Within normal limits. CHEST: Clear to auscultation. HEART: Regular rate and rhythm. S1 and S2 heart sounds. ABDOMEN: Obese. She has prior cholecystectomy trocar sites and gastric sleeve sites which are well-healed. She has prior Pfannenstiel incision in the lower abdomen from her prior sections. PELVIC: Vulva and vagina had no lesions. Cervix had no lesions. She is up to date with normal Pap smear in the past 3 years. Uterus is small and nontender. Adnexa nontender with no masses. Minimal mobility noted. EXTREMITIES: Nontender. ASSESSMENT: This is a 40-year-old white female with regional metastatic breast cancer, status post lumpectomy, chemoradiation therapy. She is BRCA negative screening. She has a strong estrogen-progesterone positive tumor. She was set up for adjuvant therapy with robotic TLH/BSO. PLAN: To remove her tubes and ovaries along with the uterus due to the fact that she will receive 2 years of the aromatase inhibitor and then also will be planned on to be placed on tamoxifen therapy for extended time approximately [address] Dominguez's treatment plan. This increases her risk for uterine cancer, and therefore, a prophylactic hysterectomy will eliminate the concern for uterine cancer issues. Surgery is set for 09/30/2020. Risks and benefits of surgery have been discussed in detail. She is aware of possible need for open ANSELMO/BSO if she has significant adhesions due to her multiple surgeries and sections from the past. Job ID: [id number]
[2020-09-30] MEDS ORDERED: Famotidine/PF 20 mg/2ml Vial ONE (09:59)
[2020-09-30] MEDS ORDERED: Gabapentin 300 MG CAP ONE (09:59)
[2020-09-30] MEDS ORDERED: CeleCOXIB 100 MG CAP ONE (09:59)
[2020-09-30] MEDS ORDERED: Bupivacaine PF 0.5% 30 ML VIAL ONE (10:26)
[2020-09-30] MEDS ORDERED: Lidocaine 1% w/Epinephrine 1:100K 20 ML VIAL ONE (10:26)
[2020-09-30] MEDS ORDERED: Scopolamine 1.5 mg/72 hour Patch ONE (10:54)
[2020-09-30] MEDS ORDERED: Midazolam HCl 2 mg/2 ml Vial ONE ×2 (10:54→10:56)
[2020-09-30] MEDS ORDERED: Fentanyl 100 MCG/2 ML VIAL ONE ×2 (10:56→13:43)
[2020-09-30] MEDS ORDERED: HYDROmorphone 0.5 MG/0.5 ML SYRINGE ONE ×3 (10:57→14:21)
[2020-09-30] MEDS ORDERED: Dexamethasone 20 MG/5 ML VIAL ONE (11:04)
[2020-09-30] MEDS ORDERED: Ondansetron PF 4 MG/2 ML Vial ONE (11:04)
[2020-09-30] MEDS ORDERED: Glycopyrrolate 0.2 MG/ML 5 ML SYRINGE ONE (11:04)
[2020-09-30] MEDS ORDERED: Lidocaine 1% PF 5 ML VIAL ONE (11:04)
[2020-09-30] MEDS ORDERED: PROPOFOL 200 MG/20 ML VIAL ONE (11:04)
[2020-09-30] MEDS ORDERED: Metoclopramide HCl 10 MG/2 ML VIAL ONE (11:04)
[2020-09-30] MEDS ORDERED: Rocuronium Bromide 10 MG/ML (10ML VIAL) ONE (11:04)
[2020-09-30] MEDS ORDERED: Albuterol Sulfate HFA (OR ONLY) ONE (11:12)
[2020-09-30] MEDS ORDERED: SUGAMMADEX SODIUM 200 MG/2 ML VIAL ONE (11:58)
[2020-09-30] MEDS ORDERED: Meperidine HCl/PF 25 MG/ML VIAL ONE (13:14)
[2020-09-30] MEDS ORDERED: Bisacodyl 10 MG SUPP PR PRN (13:34)
[2020-09-30] MEDS ORDERED: Ondansetron PF 4 MG/2 ML Vial IVP PRN (13:34)
[2020-09-30] MEDS ORDERED: Zolpidem Tartrate 5 MG TAB PO PRN (13:34)
[2020-09-30] MEDS ORDERED: Simethicone Chewable 80 MG TAB PO PRN (13:34)
[2020-09-30] MEDS ORDERED: Morphine 4 MG/ML VIAL SLOW IVP PRN (13:34)
[2020-09-30] MEDS ORDERED: traMADol HCl 50 MG TAB PO PRN (13:34)
[2020-09-30] MEDS ORDERED: Acetaminophen 325 MG TAB PO PRN (13:34)
[2020-09-30] MEDS ORDERED: Promethazine HCl 25 MG/ML VIAL IM PRN (13:34)
[2020-09-30] MEDS ORDERED: diphenhydrAMINE 25 MG CAP PO PRN (13:34)
[2020-09-30] MEDS: Lactated Ringer's 1,000 ML IV SCH ×2 (16:31→21:54)
--- NOTE | 2020-09-30 17:18 | OP ---
DATE OF PROCEDURE: 09/30/2020 PREOPERATIVE DIAGNOSES: A 40-year-old white female, G3, P3, prior section x3, with estrogen receptor positive breast cancer. POSTOPERATIVE DIAGNOSES: A 40-year-old white female, G3, P3, prior section x3, with estrogen receptor positive breast cancer. PROCEDURES PERFORMED: Robotic total laparoscopic hysterectomy and bilateral salpingo-oophorectomy. MODEL MAKER APPRENTICE SURGEON: Martin Mendiola D.O. ANESTHESIA: General endotracheal. ESTIMATED BLOOD LOSS: 50 mL. COMPLICATIONS: None. COUNTS: Correct x2. FINDINGS: 1. Normal-appearing uterus, tubes, and ovaries. 2. Clear urine present in Strong catheter postprocedure with bladder watertight to distention over procedure itself. ANTIBIOTICS: 2 g Ancef on-call to OR. DISPOSITION: To recovery room, stable. DESCRIPTION OF PROCEDURE: The patient previously received informed consent in regard to surgery. She was taken back to the operating room, where she received a general endotracheal anesthetic agent without complications. She was placed in dorsal lithotomy position with the use of Blayne stirrups, prepped and draped in usual sterile fashion. Strong catheter was placed at this time. A side-arm speculum placed in the vagina. Anterior lip of the cervix grasped with single-tooth tenaculum. The uterus sounded to 7 cm. A size 6 cm BEAU uterine manipulator with a 3.5 cm cervical cup was placed in usual fashion. Tenaculum and speculum were removed. Attention was then turned to the abdomen, where perspective trocar sites were infiltrated with 0.5% Marcaine with epinephrine. A 12 mm umbilical incision was made. Veress needle was entered in the peritoneal cavity. The patient's pressure was noted to be less than 5 mm. Abdomen was insufflated to the patient pressure of 15 with approximately 5 L of carbon dioxide gas. Veress needle was then removed and a size 12 mm trocar was placed. Laparoscope was introduced through the trocar sleeve, confirming proper entry. Additional bilateral lower quadrant 8 mm robotic trocars along with the right upper quadrant 11 mm trocar placed under laparoscopic guidance. The patient was then put in Trendelenburg position and robot was docked. I then broke scrub and proceeded to carry out the procedure from the operative while my assistants remained at the bedside. The uterus elevated from the pelvis. The previously mentioned findings were noted. There was an area of some omental adhesions in the midline anterior abdominal wall that was taken down sharply with monopolar scissors and Bovie cautery. Hemostasis was confirmed. The left IP ligament was identified. It was coagulated hugging close to the ovary with bipolar fenestrated cautery, transected, and serial coagulation of the broad ligament hugging close to uterus was carried out until the left round ligament was reached. It was coagulated and transected. The anterior leaf of the broad ligament was entered and the vesicouterine peritoneum was incised in a layering technique. The left uterine vessels were skeletonized and coagulated in the internal cervical os. We distended the bladder intermittently by back filling to ascertain its position due to the patient's prior 3 sections. This enabled me to continue to dissect in a safe plane, the vesicouterine peritoneum fold, and this was taken down sharply past cervicovaginal margin. This was again repeated on the patient's right side, where the right IP ligament was coagulated and transected hugging close to the ovary. Serial coagulation of broad ligament to the round ligament was reached, coagulating this and transecting this. Again, the anterior leaf of the broad ligament was entered, again dissecting in a layering technique, again with intermittent distention of the bladder by backfilling to ascertain its position. It remained watertight and the dissection plane was proximal to this over the cervical body. Once we had dropped the bladder safely past the cervicovaginal margin, I can also skeletonize the vessels on the right side of the uterus, coagulating them in the internal cervical os region. Once we had safely taken the bladder past the cervicovaginal margins, a colpotomy starting from 12 to 3 and 12 to 9 o'clock was carried out. The vessels at the 3 o'clock and 9 o'clock positions were coagulated and then posterior colpotomy was completed from 9 to 6 and 6 to 3. The specimen was delivered into the vaginal vault. The monopolar scissors were exchanged with a Johan needle locomotive driver. The pelvis was irrigated along the pedicle sites and hemostasis was confirmed. The vaginal cuff was coagulated of any areas of oozing with bipolar fenestrated cautery and then my multimedia assistant brought in a Stratafix suture. I closed the vaginal cuff starting from the right angle full-thickness closure to the left angle and then back towards the right angle with a double-layer closure. Hemostasis was confirmed. The needle and excess suture were then removed through the right upper quadrant port. We re-backfilled the bladder one more time to ascertain its intactness and no evidence of any leak was visualized. We then undocked the robot. I rescrubbed and then we removed the trocar sleeves. A deep stitch of talbqr-[id number]-[id number] stitch of 0 Vicryl was placed in the fascial layer in the umbilicus incision. The remainder of the trocar sites were closed with 4-0 Monocryl subcuticular stitch. Band-Aids were placed due to the patient's allergy to Dermabond. The patient was then awakened from anesthesia. She was transferred to recovery room in stable condition. Job ID: [id number]
[2020-09-30] MEDS: Ketorolac Tromethamine 30 MG/ML VIAL IVP SCH ×2 (17:46→23:38)
[2020-09-30] MEDS ORDERED: Acetaminophen 500 MG TAB PO PRN (21:38)
[2020-09-30] MEDS ORDERED: Anastrozole 1 MG TAB PO SCH (21:45)
[2020-09-30] MEDS ORDERED: Goserelin Acetate 3.6 MG KIT SC SCH (21:45)
[2020-09-30] MEDS: traMADol HCl 50 MG TAB PO PRN (21:49)
[2020-09-30] MEDS ORDERED: Escitalopram Oxalate 20 mg Tablet PO SCH (22:00)
[2020-10-01] MEDS: Lactated Ringer's 1,000 ML IV SCH (05:24)
[2020-10-01 05:25] LABS: Hemoglobin 11.6 g/dL (12.0-16.0); Mean Corpuscular HGB CONC 34.4 g/dL (32.0-36.0); Mean Corpuscular Hemoglobin 32.4 pg (27.0-31.0); Mean Corpuscular Volume 94.3 fL (78.0-98.0); Mean Platelet Volume 7.8 fL (7.4-10.4); Platelet Count 149 thou/uL (130-400); RBC Distribution Width 11.5 % (11.5-14.5); Red Blood Cell (RBC) Count 3.57 mill/uL (4.20-5.40); White Blood Cell (WBC) Count 5.1 thou/uL (4.8-10.8)
[2020-10-01] MEDS: Ketorolac Tromethamine 30 MG/ML VIAL IVP SCH ×2 (05:52→12:00)
--- NOTE | 2020-10-01 07:22 | PDOC.EVN ---
Event Note - Event Note Event Note: Tolerating diet, ambulating, voiding. +flatus O:AFVSS. HCT 33.7% ABD: soft/non ditended. Trochar sites intact. a/P: Post op day 1 from robotic tlh/bso. Doing well. D/c home. F/u 2 weeks.
[2020-10-01] MEDS: traMADol HCl 50 MG TAB PO PRN (08:47)
--- NOTE | 2020-10-01 11:17 | DIS ---
DATE OF ADMISSION: 09/30/2020 DATE OF DISCHARGE: 10/01/2020 DATE OF SURGERY: 09/30. ONCOLOGIST: Dr. Eli Dominguez. DIAGNOSIS: History of estrogen receptor positive breast cancer with regional node metastasis. PROCEDURES PERFORMED: Adjuvant therapy, robotic TLH-BSO. SUMMARY OF HOSPITAL COURSE: Ms. Bell is a 40-year-old white female with known estrogen receptor positive breast cancer with regional axillary node metastasis, who underwent an adjuvant therapy with a robotic TLH-BSO. Postoperatively, the patient has done well. Vital signs remained stable. She is afebrile. She is tolerating diet, ambulating, voiding, and passing flatus on postop day #1. Pain control was adequate with oral narcotic tramadol. Pathology is pending. The plan is to discharge home and to have followup in 2 and 6 weeks postoperatively. She is continuing her maintenance medications and use tramadol 50 mg q.6 hours p.r.n. pain and [id number] ibuprofen as directed. Job ID: [id number]
[2020-10-01 12:22] VITALS: BP 126/67; TEMP 99.3
[2020-10-01] MEDS ORDERED: traMADol HCl 50 MG TAB PO SCH (21:00)
[2020-10-01] MEDS ORDERED: Anastrozole 1 MG TAB PO SCH (21:00)
[2020-10-01] MEDS ORDERED: Escitalopram Oxalate 20 mg Tablet PO SCH (21:00)
[2020-10-05] MEDS ORDERED: Ibuprofen 800 MG TAB PO SCH (21:00)
== END 2020-10-01 12:40 | disposition home or self-care (01) ==
LOC: SDC 09:25 → 3SE 13:34 → SDC 10-01 12:40
PROVIDERS: ATTEND Obstetrics & Gynecology
PROC: 0UT74ZZ Resection of Bilateral Fallopian Tubes, Percutaneous Endoscopic Approach (ICD-10-PCS; principal; 2020-09-30)
PROC: 0UT24ZZ Resection of Bilateral Ovaries, Percutaneous Endoscopic Approach (ICD-10-PCS; principal; 2020-09-30)
PROC: 0UT94ZZ Resection of Uterus, Percutaneous Endoscopic Approach (ICD-10-PCS; principal; 2020-09-30)
DX: N88.8 Other specified noninflammatory disorders of cervix uteri (principal); C50.919 Malignant neoplasm of unspecified site of unspecified female breast; E66.9 Obesity, unspecified; Z68.43 Body mass index [BMI] 50.0-59.9, adult; Z17.0 Estrogen receptor positive status [ER+]; Z79.899 Other long term (current) drug therapy; Z88.2 Allergy status to sulfonamides; Z91.048 Other nonmedicinal substance allergy status
CPT/HCPCS: 36415; 85027; 86850; 86900; 86901; 88307; J0690; J1100; J1170; J1885; J2175; J2250; J2405; J2704; J2765; J3010; S0020; S0028

== ENCOUNTER 2020-10-09 10:10 | Outpatient (CLI) | payer OTHER ==
[2020-10-09] MEDS ORDERED: Iopamidol-370 76% 500 ML 1 ML ONE (11:20)
--- NOTE | 2020-10-09 11:27 | CT ---
EXAM: CT chest, abdomen, and pelvis with IV contrast: HISTORY: Breast cancer. History of right lumpectomy and chemotherapy. COMPARISON: PET/CT examination on 01/10/2020 FINDINGS: CT THORAX: Lungs: There are 4 separate subcentimeter pulmonary nodules in the right upper lobe with 8 mm subpleu ral pulmonary nodule right lung apex, closely adjacent 4 and 5 mm pulmonary nodules in the anterolateral right upper lobe (image 17, series 3), and a 5 mm pulmonary nodule in the right upper l obe adjacent to the minor fissure. No additional pulmonary nodule is seen. No mass or consolidation is seen in the lungs bilaterally. Pleura: No pleural effusion. Lymph nodes: No enlarged lymph nodes are seen by CT size criteria. Mediastinum: Trace pericardial effusion present. Mediastinal structures are otherwise within normal l imits. Chest wall: There has been interval decrease in the large right breast fluid collection likely due to seroma previously measuring 9.1 cm in maximal dimensions and now measures 4.4 cm in maximal dimensions. A smaller fluid collection seen in the superior aspect right axilla has resolved with onl y minimal stranding of present in this region. There is mild stranding seen in the right breast soft tissues with associated skin thickening compared to the left likely related to posttreatment nimisha nges. CT ABDOMEN AND PELVIS: Liver: Within normal limits. Gallbladder: Surgically absent.\ Pancreas: Within normal limits. Spleen: Within normal limits. Adrenal glands: Within normal limits. Kidneys: Prominence of the right renal pelvis, but this is a stable finding compared to prior PET/CT exam. Kidneys otherwise have a normal CT appearance. Urinary Bladder: The urinary bladder is unremarkable. Reproductive organs: Evidence of hysterectomy when compared to prior exam. Mild stranding is seen wit hin the lower pelvis. No fluid collection is seen in this region. Bowel: Postoperative changes of the stomach are again seen. Small hiatal hernia is present. Loops of small bowel are normal in caliber. There are surgical clips seen in the region of the cecal apex which may be related to prior appendectomy. The appendix is not visualized. Adenopathy:No enlarged lymph nodes are seen by CT size criteria. Peritoneum: No free fluid or fluid collection is seen. No free intraperitoneal gas is identified. Abdominal wall: There is gas seen in the subcutaneous soft tissues near the level of the umbilicus wi th minimal inflammatory stranding also present in this region. This could be related to prior postoperative change. Clinical correlation is suggested. Minimal linear stranding is seen within the anterior upper abdomen subcutaneous tissue. Osseous structures: No suspicious lytic or sclerotic osseous lesions are identified IMPRESSION: 1. No CT findings to suggest metastatic disease. 2. Resolution of right axillary fluid collection with significant interval decrease in size of right breast fluid collection likely due to improving seromas. 3. Mild skin thickening and stranding in the right breast which could be related to posttreatment nimisha nges. 4. Postoperative changes related to cholecystectomy. 5. Interval postoperative changes related to hysterectomy with minimal stranding seen in the lower pe lvis. 6. Findings likely due to postoperative changes at the level of the umbilicus and in the anterior abd ominal subcutaneous tissues which may be related to sites of prior port placement. Clinical correlation suggested.
== END 2020-10-09 10:11 | disposition home or self-care (01) ==
LOC: BICCT 10:10
PROVIDERS: ATTEND Internal Medicine Hematology & Oncology
DX: C50.911 Malignant neoplasm of unspecified site of right female breast (principal); Z90.49 Acquired absence of other specified parts of digestive tract; Z90.710 Acquired absence of both cervix and uterus
CPT/HCPCS: 71260; 74177; Q9967

== ENCOUNTER 2023-02-03 13:50 | Emergency (ER) | payer BC ==
[2023-02-03 14:22] LABS: #Lymphocytes 0.4 thou/uL (1.20-3.40); #Monocytes 0.2 thou/uL (0.11-0.59); #Neutrophils 5.4 thou/uL (1.40-6.50); %Basophils 0.1 % (0.0-1.0); %Eosinophils 0.8 % (0.0-10.0); %Lymphocytes 6.8 % (21.0-51.0); %Monocytes 2.4 % (0.0-10.0); %Neutrophils 89.9 % (42.0-75.0); Mean Platelet Volume 8.1 fL (7.4-10.4); Platelet Count 139 10x3/uL (130-400); RBC Distribution Width 11.1 % (11.5-14.5); Red Blood Cell (RBC) Count 4.54 mill/uL (4.20-5.40)
[2023-02-03 14:30] LABS: BHCG - Serum Negative (NEGATIVE); Pregs Control Background? CLEAR/WHITE (CLR/WHITE); Pregs Control Bar Appear? YES (CONTROL BAR)
[2023-02-03] MEDS ORDERED: Ondansetron PF 4 MG/2 ML Vial ONE (14:35)
[2023-02-03] MEDS ORDERED: Acetaminophen 500 MG TAB ONE (14:35)
[2023-02-03 14:43] LABS: ALT (SGPT) 10 U/L (8-55); AST (SGOT) 16 U/L (5-34); Acetaminophen Less than 10.0 mcg/mL (10.0-30.0); Albumin 4.2 g/dL (3.5-5.0); Alcohol Less than 10 mg/dL (Less than 10); Alkaline Phosphatase 76 U/L (40-110); Anion Gap 13 mmol/L (10-20); BUN (Urea Nitrogen) 19 mg/dL (7.0-18.7); Bilirubin, Total 0.7 mg/dL (0.2-1.2); Calc. Creatinine Clearance 0 mL/min (70-130); Calcium 9.3 mg/dL (7.8-10.44); Carbon Dioxide 22 mmol/L (22-29); Chloride 106 mmol/L (98-107); Estimated GFR 75; Globulin 2.8 g/dL (2.4-3.5); Glucose 109 mg/dL (70-105); Potassium 3.6 mmol/L (3.5-5.1); Salicylate Less than 8.0 mg/dL (15.0-30.0); Sodium 137 mmol/L (136-145)
[2023-02-03 14:51] LABS: Amphetamine Not Detected (NotDetected); Barbiturates Screen Not Detected (NotDetected); Benzodiazepine Screen Not Detected (NotDetected); Cocaine Metabolite Screen Not Detected (NotDetected); Methadone Not Detected (NotDetected); Methamphetamine Not Detected (NotDetected); Opiate Screen Not Detected (NotDetected); Oxycodone Screen Not Detected (NotDetected); Phencyclidine (PCP) Not Detected (NotDetected); THC/Cannabinoid Screen Not Detected (NotDetected); Tricyclic Screen Not Detected (NotDetected)
== END 2023-02-03 16:54 | disposition home or self-care (01) ==
LOC: ERS 13:50
DX: T46.5X1A Poisoning by other antihypertensive drugs, accidental (unintentional), initial encounter (principal)
CPT/HCPCS: 80053; 80306; 80307; 84703; 85025; 93005; 96361; 96374; J2405

== ENCOUNTER 2023-03-08 13:47 | Outpatient (CLI) | payer BC | END 2023-03-08 13:48 | disposition home or self-care (01) | LOC: BICMAMMO 13:47 | PROVIDERS: ATTEND Internal Medicine Hematology & Oncology | DX: Z08 Encounter for follow-up examination after completed treatment for malignant neoplasm (principal); Z85.3 Personal history of malignant neoplasm of breast | CPT/HCPCS: 77066; G0279 ==

== ENCOUNTER 2024-08-07 08:57 | Outpatient (CLI) | payer BC ==
[2024-08-07] MEDS ORDERED: Iopamidol 370 76% 100 ML VIAL ONE (10:27)
== END 2024-08-07 08:58 | disposition home or self-care (01) ==
LOC: CT 08:57
PROVIDERS: ATTEND Internal Medicine Hematology & Oncology
DX: C50.811 Malignant neoplasm of overlapping sites of right female breast (principal); R63.4 Abnormal weight loss
CPT/HCPCS: 71260; 74177; Q9967